=== PATIENT | male | born 1990 | race American Indian/Alaskan Native ===

== ENCOUNTER 2018-11-25 09:36 | Emergency (ER) | payer MEDICAID, OTHER ==
[2018-11-25] MEDS ORDERED: Sodium Chloride 0.9% 1,000 ML IV ONE (09:48)
[2018-11-25] MEDS ORDERED: Sodium Chloride 0.9% 10 ML Syringe FLUSH PRN (09:48)
[2018-11-25] MEDS ORDERED: Lidocaine 1% with EPINEPHrine 1:100,000 20 ML MDV INJECT ONE (09:48)
[2018-11-25] MEDS ORDERED: HYDROmorphone 1 MG/ML Syringe IVPUSH ONE (09:51)
[2018-11-25] MEDS ORDERED: Diphtheria,Pertussis(Acell),Tetanus Vaccine 0.5 ML Syringe IM ONE (10:35)
--- NOTE | 2018-11-25 10:40 | EDM.PDOC ---
ED HPI GENERAL MEDICAL PROBLEM - General Chief Complaint: Laceration Stated Complaint: L HAND/WRIST LAC Time Seen by Provider: 11/25/18 09:47 Source of Information: Reports: Patient History Limitations: Reports: No Limitations - History of Present Illness INITIAL COMMENTS - FREE TEXT/NARRATIVE: The patient presents with a laceration to his left wrist. He was working on his truck and accidentally cut his left wrist with a knife. He is right handed. He does not think his tetanus is up to date. He has a 4.5cm laceration to the radial aspect of the right wrist. He can move his thumb. Onset: Sudden Duration: Minutes: Location: Reports: Upper Extremity, Left (wrist) Quality: Reports: Sharp Severity: Severe Improves with: Reports: Immobilization Worsens with: Reports: Movement Context: Reports: Trauma (cut himself with the knife) Associated Symptoms: Reports: No Other Symptoms - Related Data Allergies Allergy/AdvReac Type Severity Reaction Status Date / Time No Known Allergies Allergy Verified 11/25/18 09:50 Home Meds: Home Meds . [No Known Home Meds] 11/25/18 [History] ED ROS GENERAL - Review of Systems Review Of Systems: See Below Constitutional: Reports: No Symptoms HEENT: Reports: No Symptoms Respiratory: Reports: No Symptoms Cardiovascular: Reports: No Symptoms Endocrine: Reports: No Symptoms GI/Abdominal: Reports: No Symptoms : Reports: No Symptoms Musculoskeletal: Reports: Other (left wrist laceration) ED EXAM, SKIN/RASH Exam: See Below Exam Limited By: No Limitations General Appearance: Alert, Mild Distress Ears: Normal External Exam Nose: Normal Inspection Head: Atraumatic, Normocephalic Neck: Normal Inspection Respiratory/Chest: No Respiratory Distress Extremities: Other (4.5cm laceration to the radial aspect of the wrist. He has numbness to his thumb but he can move his thumb and when I looked in the wound there were no tendon lacerations.) ED SKIN PROCEDURES - Laceration/Wound Repair Left Wrist Lac/Wound length In cm: 4.5 Appearance: Subcutaneous, Linear Distal NVT: No Tendon Injury, Other (Numbness to the left thumb) Anesthetic Type: Local Local Anesthesia - Lidocaine (Xylocaine): 1% with EPI Skin Prep: Saline Exploration/Debridement/Repair: Wound Explored, In a Bloodless Field, Explored to Base, Minimal Debridement Closed with: Sutures Suture Size: 3-0 # of Sutures: 7 Suture Type: Nylon, Interrupted, Simple Tetanus Status Addressed: Yes Complications: No Course - Orders/Labs/Meds Orders: Active Orders 24 hr Category Date Time Status Peripheral IV Care [RC] . DIRECTED Care 11/25/18 09:48 Active Vaccines to be Administered [RC] PER UNIT ROUTINE Care 11/25/18 10:35 Active Sodium Chloride 0.9% [Normal Saline] 1,000 ml Med 11/25/18 09:48 Active IV ONETIME Sodium Chloride 0.9% [Saline Flush] Med 11/25/18 09:48 Active 10 ml FLUSH ASDIRECTED PRN Peripheral IV Insertion Adult [OM.PC] Routine Oth 11/25/18 09:48 Ordered Medication Orders Sodium Chloride (Normal Saline) 1,000 mls @ 1,000 mls/hr IV ONETIME ONE Stop: 11/25/18 10:47 Last Admin: 11/25/18 09:55 Dose: 1,000 mls/hr Sodium Chloride (Saline Flush) 10 ml FLUSH ASDIRECTED PRN PRN Reason: Keep Vein Open Last Admin: 11/25/18 09:55 Dose: 10 ml Meds: Medications Generic Name Dose Route Start Last Admin Trade Name Freq PRN Reason Stop Dose Admin Sodium Chloride 1,000 mls @ 1,000 mls/hr 11/25/18 09:48 11/25/18 09:55 Normal Saline IV 11/25/18 10:47 1,000 mls/hr ONETIME ONE Administration Sodium Chloride 10 ml 11/25/18 09:48 11/25/18 09:55 Saline Flush FLUSH 10 ml ASDIRECTED PRN Administration Keep Vein Open Discontinued Medications Generic Name Dose Route Start Last Admin Trade Name Freq PRN Reason Stop Dose Admin Diphtheria/Tetanus/Acell Pertussis 0.5 ml 11/25/18 10:35 Adacel IM 11/25/18 10:36 .ONCE ONE Hydromorphone HCl 0.5 mg 11/25/18 09:51 11/25/18 09:55 Dilaudid IVPUSH 11/25/18 09:52 0.5 mg ONETIME ONE Administration Lidocaine/Epinephrine 20 ml 11/25/18 09:48 11/25/18 09:55 Xylocaine 1% With Epinephrine 1:100,000 INJECT 11/25/18 09:49 20 ml ONETIME ONE Administration - Re-Assessments/Exams Free Text/Narrative Re-Assessment/Exam: 11/25/18 10:44 My PA student Vega helped me with the laceration. I will update his tetanus. 11/25/18 10:47 I did give him a fluid bolus and some dilaudid for pain. He looked like he was going to pass out when he came in. He did better after we numbed the wound. Departure - Departure Time of Disposition: 10:50 Disposition: Home, Self-Care 01 Condition: Good Clinical Impression: Laceration of left wrist Qualifiers: Encounter type: initial encounter Qualified Code(s): S61.512A - Laceration without foreign body of left wrist, initial encounter - Discharge Information *PRESCRIPTION DRUG MONITORING PROGRAM REVIEWED*: Not Applicable *COPY OF PRESCRIPTION DRUG MONITORING REPORT IN PATIENT EL: Not Applicable Referrals: PCP,None [Primary Care Provider] - Forms: ED Department Discharge Additional Instructions: Clean the wound with warm soapy water 2 times per day and apply antibiotic ointment after. Have the sutures removed in 1 week. Please return if you see any signs of infection such as redness, swelling, pain or drainage. You may need an oral antibiotic. - My Orders Last 24 Hours: My Active Orders 11/25/18 09:48 Peripheral IV Care [RC] . DIRECTED Sodium Chloride 0.9% [Normal Saline] 1,000 ml IV ONETIME Sodium Chloride 0.9% [Saline Flush] 10 ml FLUSH ASDIRECTED PRN Peripheral IV Insertion Adult [OM.PC] Routine 11/25/18 10:35 Vaccines to be Administered [RC] PER UNIT ROUTINE - Assessment/Plan Last 24 Hours: My Active Orders 11/25/18 09:48 Peripheral IV Care [RC] . DIRECTED Sodium Chloride 0.9% [Normal Saline] 1,000 ml IV ONETIME Sodium Chloride 0.9% [Saline Flush] 10 ml FLUSH ASDIRECTED PRN Peripheral IV Insertion Adult [OM.PC] Routine 11/25/18 10:35 Vaccines to be Administered [RC] PER UNIT ROUTINE
== END 2018-11-25 11:17 | disposition home or self-care (01) ==
LOC: JD.ED 09:36
DX: S61.512A Laceration without foreign body of left wrist, initial encounter (principal); W26.8XXA Contact with other sharp object(s), not elsewhere classified, initial encounter
CPT/HCPCS: 12002; 90471; 90700; 96361; 96374; 99283; J1170; J7040

== ENCOUNTER 2021-12-23 12:29 | Emergency (ER) | payer BC | END 2021-12-23 15:09 | disposition home or self-care (01) | LOC: JD.ED 12:29 | DX: B08.4 Enteroviral vesicular stomatitis with exanthem (principal); Z72.0 Tobacco use | CPT/HCPCS: 99282; 99283 ==